=== PATIENT | female | born 1990 | race Caucasian/White ===

== ENCOUNTER 2017-03-20 11:09 | Outpatient (CLI) | payer OTHER, SELFPAY ==
[2017-03-20 11:29] VITALS: BMI 31.0
[2017-03-20 12:02] LABS: ROM Internal Control Test YES-OK TO RESULT pt. (Internal QC); ROM Patient Test Negative (Negative)
--- NOTE | 2017-03-29 18:40 | OB.TRI.NOTE ---
History of Present Illness Reason For Visit: RULE OUT SROM Date of Service: 03/20/17 Gestational age: 37 Home Medications Medication Instructions Recorded Levothyroxine [Synthroid] 50 mcg PO DAILY 03/20/17 Prenatabs FA 1 tab PO DAILY 03/20/17 Ibuprofen [Motrin] 800 mg PO TID PRN PRN #30 tab 03/29/17 Levothyroxine [Synthroid] 50 mcg PO DAILY@2200 tablet 03/29/17 Allergies No Known Allergies Allergy (Verified 03/20/17 11:27) NST - FHR Rate Baby A Baseline: normal Variability:: Moderate Accelerations:: 15 x 15 Decelerations:: None NST Reactive:: Yes FHR Category:: Category I Uterine Activity:: irreg ctxs Impression/Plan 26 YOF @ 37 + weeks w/ false labor d/c home, return in labor or prn
== END 2017-03-20 12:50 | disposition home or self-care (01) ==
LOC: WPOUT 11:11 → WP 11:11
PROVIDERS: Visit Provider Obstetrics & Gynecology
DX: O47.1 False labor at or after 37 completed weeks of gestation (principal); Z3A.37 37 weeks gestation of pregnancy
CPT/HCPCS: 59025; 59050; 84112; 99218; G0378; G0379

== ENCOUNTER 2017-03-27 09:20 | Inpatient (IN) | payer OTHER, SELFPAY ==
[2017-03-27 09:18] LABS: ROM Internal Control Test YES-OK TO RESULT pt. (Internal QC)
[2017-03-27 09:20] LABS: ROM Patient Test POSITIVE (Negative)
[2017-03-27 09:30] VITALS: BMI 31.2
[2017-03-27] MEDS: Lactated Ringers 1,000 ML 50 ML IV ×4 (09:30→17:40)
[2017-03-27 09:48] LABS: Hematocrit 34.1 % (37-47); Hemoglobin 11.9 g/dl (12.0-15.0); Mean Corp Hgb Conc 34.9 g/gl (32-36); Mean Corpuscular Hgb 30.7 pg (27.0-32.0); Mean Corpuscular Volume 88.1 fL (81-99); Mean Platelet Vol. 11.7 fl (6.2-12.0); Platelet Count 139 K/mm3 (150-450); RBC Distribution Width CV 12.3 % (11.6-14.6); RBC Distribution Width SD 38.8 fl (35.1-43.9); Red Blood Count 3.87 M/mm3 (4.2-5.4); White Blood Count 10.5 K/mm3 (4.4-11.0)
[2017-03-27 09:49] LABS: Scan Indicated on CBC? Y/N NO
[2017-03-27] MEDS: Oxytocin 30 units/NS 500 ml 30 UNITS/500 ML IV.SOLN IV (11:48)
--- NOTE | 2017-03-27 16:52 | PCM.HP.OB ---
(1) PROM (premature rupture of membranes) Status: Acute Qualifiers: PROM onset of labor timing: onset of labor within 24 hours of rupture PROM gestational age: full term Qualified Code(s): O42.02 - Full-term premature rupture of membranes, onset of labor within 24 hours of rupture (2) Hypothyroidism affecting in third trimester Status: Acute (3) Polycystic kidney disease Status: Acute (4) History of macrosomia in in prior , currently in third trimester Status: Acute History Date of Admission: 03/27/17 Gestational age: 38 History of this : 26 year old at 38w6d TOMAS: 04/04/17 by LMP, confirmed by 1st trimester U/S. SROM this am around 0800, clear fluid at home. Contractions began about every 6-7 minutes and presented to L&D. Advanced dilation in office of 5cm. Labored throughout the day and coping well. Family at bedside. OB history: History of macrosomia 9lb 6oz. Allergies No Known Allergies Allergy (Verified 03/20/17 11:27) Current Medications Acetaminophen (Tylenol) 325 - 650 mg PO Q4H PRN PRN PRN Reason: PAIN OR FEVER >100.4F Al Hydroxide/Mg Hydroxide (Mylanta Ii) 15 - 30 ml PO Q4H PRN PRN PRN Reason: INDIGESTION Citric Acid/Sodium Citrate (Bicitra) 30 ml PO UD PRN Lactated Ringer's () 1,000 mls @ 50 mls/hr IV .Q20H [facility] Last Admin: 03/27/17 16:15 Dose: 50 mls/hr Oxytocin/Sodium Chloride () 30 units in 500 mls @ 1 mls/hr IV .Q500H [facility] Last Admin: 03/27/17 11:48 Dose: 1 mls/hr Levothyroxine Sodium (Synthroid) 50 mcg PO DAILY [facility] Nalbuphine HCl (Nubain) 5 - 10 mg IV Q3H PRN PRN PRN Reason: PAIN (4-10/10) Ondansetron HCl (Zofran) 4 mg IV Q8H PRN PRN PRN Reason: NAUSEA Promethazine HCl (Phenergan (Ll)) 6.25 - 12.5 mg IV Q4H PRN PRN; Protocol PRN Reason: IF NAUSEA PERSISTS Sodium Chloride () 5 - 15 ml IV UD [facility] Last Admin: 03/27/17 10:48 Dose: Not Given Smoking Status: Never smoker Alcohol: None Drug Use: none Number of Fetus(es): 1 Review of Systems Constitutional: Denies: Chills, Fever, Weight Change Cardiovascular: Denies: Chest Pain, Palpitations Respiratory: Denies: Cough, Shortness of breath at rest, Sputum production Genitourinary: Denies: Dysuria Physical Exam Vitals: labs: HIV negative RPR negative HBsAG negative Rubella Immune A positive GBS negative. General: Alert, Oriented x3, No apparent distress Cardiovascular: Regular rate, Regular Rhythm, No murmurs Lungs: Clear to auscultation, No rhonchi, No wheeze Abdomen: Bowel Sounds Present, Gravid Extremities:: No edema Estimated gestational size: Appropriate for gestational size Presentation: Cephalic Cervix Dilation (cm): 6 Station: -1 Effacement (%): 80 Assessment/Plan Active and Suspected Problems PROM (premature rupture of membranes) (Acute) Hypothyroidism affecting in third trimester (Acute) Polycystic kidney disease (Acute) History of macrosomia in infant in prior , currently in third trimester (Acute) FHT 120, moderate variability, accels, no decels, category 1. After AROM of forebag, had occasional variable decel Category 2 TOCO: every 2 minutes, moderate Pitocin at 8mu's A: 26 year old at 38w6d in active labor PROM History of macrosomia Category 2 FHT P: 1) Admit to L&D. Routine orders 2) Epidural for pain management 3) Positional changes in bed 4) Continue with Pitocin augmentation 5) notified of patient status and plan. Kylah Lawson CNM
--- NOTE | 2017-03-27 17:03 | HP.PCM_ITS ---
(1) PROM (premature rupture of membranes) Status: Acute Qualifiers: PROM onset of labor timing: onset of labor within 24 hours of rupture PROM gestational age: full term Qualified Code(s): O42.02 - Full-term premature rupture of membranes, onset of labor within 24 hours of rupture (2) Hypothyroidism affecting in third trimester Status: Acute (3) Polycystic kidney disease Status: Acute (4) History of macrosomia in in prior , currently in third trimester Status: Acute History Date of Admission: 03/27/17 Gestational age: 38 History of this : 26 year old at 38w6d TOMAS: 04/04/17 by LMP, confirmed by 1st trimester U/ S. SROM this am around 0800, clear fluid at home. Contractions began about every 6-7 minutes and presented to L&D. Advanced dilation in office of 5cm. Labored throughout the day and coping well. Family at bedside. OB history: History of macrosomia 9lb 6oz. Allergies No Known Allergies Allergy (Verified 03/20/17 11:27) Current Medications Acetaminophen (Tylenol) 325 - 650 mg PO Q4H PRN PRN PRN Reason: PAIN OR FEVER >100.4F Al Hydroxide/Mg Hydroxide (Mylanta Ii) 15 - 30 ml PO Q4H PRN PRN PRN Reason: INDIGESTION Citric Acid/Sodium Citrate (Bicitra) 30 ml PO UD PRN Lactated Ringer's () 1,000 mls @ 50 mls/hr IV .Q20H [facility] Last Admin: 03/27/17 16:15 Dose: 50 mls/hr Oxytocin/Sodium Chloride () 30 units in 500 mls @ 1 mls/hr IV .Q500H [facility] Last Admin: 03/27/17 11:48 Dose: 1 mls/hr Levothyroxine Sodium (Synthroid) 50 mcg PO DAILY [facility] Nalbuphine HCl (Nubain) 5 - 10 mg IV Q3H PRN PRN PRN Reason: PAIN (4-10/10) Ondansetron HCl (Zofran) 4 mg IV Q8H PRN PRN PRN Reason: NAUSEA Promethazine HCl (Phenergan (Ll)) 6.25 - 12.5 mg IV Q4H PRN PRN; Protocol PRN Reason: IF NAUSEA PERSISTS Sodium Chloride () 5 - 15 ml IV UD [facility] Last Admin: 03/27/17 10:48 Dose: Not Given Smoking Status: Never smoker Alcohol: None Drug Use: none Number of Fetus(es): 1 Review of Systems Constitutional: Denies: Chills, Fever, Weight Change Cardiovascular: Denies: Chest Pain, Palpitations Respiratory: Denies: Cough, Shortness of breath at rest, Sputum production Genitourinary: Denies: Dysuria Physical Exam Vitals: labs: HIV negative RPR negative HBsAG negative Rubella Immune A positive GBS negative. General: Alert, Oriented x3, No apparent distress Cardiovascular: Regular rate, Regular Rhythm, No murmurs Lungs: Clear to auscultation, No rhonchi, No wheeze Abdomen: Bowel Sounds Present, Gravid Extremities:: No edema Estimated gestational size: Appropriate for gestational size Presentation: Cephalic Cervix Dilation (cm): 6 Station: -1 Effacement (%): 80 Assessment/Plan Active and Suspected Problems PROM (premature rupture of membranes) (Acute) Hypothyroidism affecting in third trimester (Acute) Polycystic kidney disease (Acute) History of macrosomia in infant in prior , currently in third trimester (Acute) FHT 120, moderate variability, accels, no decels, category 1. After AROM of forebag, had occasional variable decel Category 2 TOCO: every 2 minutes, moderate Pitocin at 8mu's A: 26 year old at 38w6d in active labor PROM History of macrosomia Category 2 FHT P: 1) Admit to L&D. Routine orders 2) Epidural for pain management 3) Positional changes in bed 4) Continue with Pitocin augmentation 5) notified of patient status and plan. Kylah Lawson CNM
[2017-03-27] MEDS: Oxytocin 30 units/NS 500 ml 30 UNITS/500 ML IV.SOLN 334 UNITS IV (18:23)
--- NOTE | 2017-03-27 18:30 | PCM.OB.VAG ---
(1) PROM (premature rupture of membranes) Status: Acute Qualifiers: PROM onset of labor timing: onset of labor within 24 hours of rupture PROM gestational age: full term Qualified Code(s): O42.02 - Full-term premature rupture of membranes, onset of labor within 24 hours of rupture (2) Hypothyroidism affecting in third trimester Status: Acute (3) Polycystic kidney disease Status: Acute (4) History of macrosomia in in prior , currently in third trimester Status: Acute (5) (normal spontaneous vaginal delivery) Status: Acute Vaginal Delivery Maternal Presentation: Active Labor, Spontaneous Rupture of Membranes Method of Induction: Pitocin, Amniotomy Amniotic Membrane Rupture Type: Spontaneous at home - AROM for forebag Amniotic Fluid Description: Clear Final TOMAS: 04/04/17 Final TOMAS Source: LMP Gestational age: 38 Weeks and 6 Days Date of Procedure: 03/27/17 Pre-Operative Diagnosis: PROM, Active labor Post-Operative Diagnosis: Surgery/ Procedure Performed: Spontaneous Vaginal Delivery Type of Anesthesia: Epidural Description of Procedure: Progressed to complete with increased pressure. of viable male over intact perineum. Delivered OA and restituted to IRIS, compound presentation of right hand. Infant delivered and placed on maternal abdomen skin to skin. Mouth and nares suctioned for secretions, strong cry spontaneous. APGARS 8,9 with weight pending. Placenta delivered intact with maternal effort, 3 vessel cord. IV pitocin for active 3rd stage management. Perineum inspected and intact, no repair. Fundus firm and hemostasis achieved, 250ml EBL. Planning to breastfeed, mom and baby stable. Family bonding well. notified of delivery. Presentation: Vertex, IRIS Placental Delivery Description: Spontaneous Placenta Disposition: [facility] Cord Vessel Description: 3 Vessels Cord Entanglement: None Estimated Blood Loss: 250ml (1 minute): 8 (5 minute): 9 Episiotomy Description: None Laceration: None Medications given after delivery: IV Pitocin
[2017-03-27] MEDS: Oxytocin 30 units/NS 500 ml 30 UNITS/500 ML IV.SOLN 167 UNITS IV (18:49)
[2017-03-27 23:10] VITALS: BP 115/72; PULSE 75; RESP 18; TEMP 36.8; O2SAT 95
--- NOTE | 2017-03-27 23:36 | EKGRS_ITS ---
Test Reason : ARRYTHMIA Blood Pressure : / mmHG Vent. Rate : 054 BPM Atrial Rate : 054 BPM P-R Int : 156 ms QRS Dur : 078 ms QT Int : 388 ms P-R-T Axes : 062 037 030 degrees QTc Int : 367 ms Sinus bradycardia with marked sinus arrhythmia Otherwise normal ECG No previous ECGs available Confirmed by JACQUES OLIVAS ([id number]), editor magazine CHRISTOPHER MCGHEE ([id number]) on 03/31/2017 12:06:12 PM Referred By: EDY Confirmed By:JACQUES OLIVAS
[2017-03-27] MEDS: 0.9 % NaCl (Sterile) Posiflush 10 mL IV (23:50)
[2017-03-28 00:05] LABS: Hematocrit 32.4 % (37-47); Hemoglobin 11.3 g/dl (12.0-15.0); Mean Corp Hgb Conc 34.9 g/gl (32-36); Mean Corpuscular Hgb 30.9 pg (27.0-32.0); Mean Corpuscular Volume 88.5 fL (81-99); Mean Platelet Vol. 12.1 fl (6.2-12.0); Platelet Count 138 K/mm3 (150-450); RBC Distribution Width CV 12.2 % (11.6-14.6); RBC Distribution Width SD 37.9 fl (35.1-43.9); Red Blood Count 3.66 M/mm3 (4.2-5.4); White Blood Count 15.2 K/mm3 (4.4-11.0)
[2017-03-28 00:12] LABS: Scan Indicated on CBC? Y/N NO
[2017-03-28 00:28] LABS: ALB/GLOB Ratio 0.7 RATIO (0.9-2.4); AST(SGOT) 25 U/L (15-37); Alanine Aminotransfer ALT/SGPT 17 U/L (13-56); Albumin, Serum 2.3 g/dL (3.2-5.0); Alkaline Phosphatase 125 U/L (45-117); Anion Gap 9 (5-15); BUN 8 mg/dL (7-18); BUN/Creat Ratio 19.8 RATIO (10-20); Calcium,Total 8.5 mg/dL (8.5-10.1); Chloride 108 mmol/L (98-107); EST Glomerular Filtration Rate 202 mL/min (>60); Est Glom Filt Rate - Afr Amer 245 mL/min (>60); Globulin 3.4 g/dL (2.2-4.2); Glucose 91 mg/dL (70-110); Potassium 3.5 mmol/L (3.5-5.1); Protein, Total 5.7 g/dL (6.4-8.2); Sodium Level 140 mmol/L (136-145)
--- NOTE | 2017-03-28 00:30 | NURSING ---
2327-called sandy christiansen cnm, made aware of pt having irreg rhythm with hr in the 50's. orders received. 2339-called RT, made aware of order for ekg 234-cbc, cmp drawn from rt hand 235-RT sandy in to do EKG
--- NOTE | 2017-03-28 00:39 | NURSING ---
0035-called sandy christiansen, made aware of ekg reading showing sinus angelica with marked sinus arrhythmia and of lab results. to have ekg read as normally read by hospitalist and consult them to see pt in am if pt becomes symptomatic to notify sandy christiansen.
--- NOTE | 2017-03-28 00:58 | NURSING ---
0055-hospitalist dr Fernandez made aware of request for hospitalist to see pt in am and read EKG. to call again in am at 0800
[2017-03-28] MEDS: Ibuprofen 600 MG Tablet PO ×3 (03:14→19:47)
[2017-03-28 03:15] VITALS: BP 114/69; PULSE 67; RESP 16; TEMP 36.7; O2SAT 98
[2017-03-28 08:14] VITALS: BP 128/71; PULSE 62; RESP 16; TEMP 36.6; O2SAT 96
--- NOTE | 2017-03-28 08:21 | PCM.PN.OB ---
Patient Problems: Active and Suspected Problems PROM (premature rupture of membranes) (Acute) Hypothyroidism affecting in third trimester (Acute) Polycystic kidney disease (Acute) History of macrosomia in in prior , currently in third trimester (Acute) (normal spontaneous vaginal delivery) (Acute) Subjective: Doing well per patient and nursing staff. Ambulating and taking PO without difficulty. Voiding and passing flatus. Denies any headache, visual changes, chest pain, shortness of breath, dizziness, chest pain or palpitations, or increased vaginal bleeding. Notified last night that patient had irregular HR and bradycardia to the 50's. Patient has been asymptomatic and not bradycardic this am. - Physical Exam General: Alert Lungs: Clear to auscultation, Normal air movement, No rhonchi, No wheeze Cardiovascular: Regular rate, Regular Rhythm, No murmurs Abdomen: Bowel Sounds Present, - - Fundus firm 2 below U Extremities: No edema, Capillary Refill Less than 3 Seconds Psych/Mental Status: Normal Affect, Appropriate Vital Signs Temp Pulse Resp BP Pulse Ox 98 F 62 16 128/71 H 96 03/28/17 08:14 03/28/17 08:14 03/28/17 08:14 03/28/17 08:14 03/28/17 08:14 Oxygen Delivery Method Room Air Weight: 176 lb 9.444 oz Body Mass Index (BMI) 31.2 Intake and Output for Last 24 Hours 03/26/17 03/27/17 03/28/17 23:59 23:59 23:59 Intake Total 4828 / 4828 Output Total 2750 / 2750 Balance 2078 / 2078 Laboratory Tests Past 24 Hrs 03/27/17 03/27/17 03/27/17 09:01 09:30 09:30 WBC 10.5 RBC 3.87 L Hgb 11.9 L Hct 34.1 L MCV 88.1 MCH 30.7 MCHC 34.9 RDW 12.3 RDW Differential 38.8 Plt Count 139 L MPV 11.7 Sodium Potassium Chloride Carbon Dioxide Anion Gap BUN Creatinine Estim Creat Clear Calc Est GFR (MDRD) Af Amer Est GFR (MDRD) Non-Af BUN/Creatinine Ratio Glucose Calcium Total Bilirubin AST ALT Alkaline Phosphatase Total Protein Albumin Globulin Albumin/Globulin Ratio Vag Amniotic Fld Detect POSITIVE H Blood Type A POSITIVE Antibody Screen NEGATIVE 03/27/17 03/27/17 23:47 23:47 WBC 15.2 H RBC 3.66 L Hgb 11.3 L Hct 32.4 L MCV 88.5 MCH 30.9 MCHC 34.9 RDW 12.2 RDW Differential 37.9 Plt Count 138 L MPV 12.1 H Sodium 140 Potassium 3.5 Chloride 108 H Carbon Dioxide 23.0 Anion Gap 9 BUN 8 Creatinine 0.40 L Estim Creat Clear Calc 176.30 Est GFR (MDRD) Af Amer 245 Est GFR (MDRD) Non-Af 202 BUN/Creatinine Ratio 19.8 Glucose 91 Calcium 8.5 Total Bilirubin 0.70 AST 25 ALT 17 Alkaline Phosphatase 125 H Total Protein 5.7 L Albumin 2.3 L Globulin 3.4 Albumin/Globulin Ratio 0.7 L Vag Amniotic Fld Detect Blood Type Antibody Screen Assessment/Plan Active and Suspected Problems PROM (premature rupture of membranes) (Acute) Hypothyroidism affecting in third trimester (Acute) Polycystic kidney disease (Acute) History of macrosomia in in prior , currently in third trimester (Acute) (normal spontaneous vaginal delivery) (Acute) A: PPD#1 Sinus bradycardia with arrhythmia P: 1) Last night patient with sinus bradycardia and arrhythmia, no previous cardiac history. Patient asymptomatic and regular rhythm this am and normal rate. Will consult . 2) Routine PP care. 3) Planning for D/C home tomorrow.
--- NOTE | 2017-03-28 08:25 | PCM.DCVAG ---
Discharge Diet: No Restrictions Discharge Activity: Return to Normal Activity, May not drive while taking narcotic pain medications., May Shower May resume sexual activity in: 4-6 weeks Weight Bearing Status: Weight bearing as tolerated Call your doctor if your incision/area has: Continuous Slow Oozing, Sudden Increased Bleeding, Increased Pain/ Swelling, Increased Redness, Foul Smelling Discharge Additional Instructions: If you experience any of the following, contact your healthcare provider. Bleeding that soaks a pad every hour for 2 hours Fever 100.4 or higher Unrelieved incision or abdominal pain Swelling, redness, discharge or bleeding from your incision or episiotomy site Your incision begins to separate Problems urinating (including inability to urinate or burning while urinating). Visual changes Severe headache Flu-like symptoms Pain or redness in one of both of your breasts Pain, warmth, tenderness or swelling in your legs, especially the calf area Frequent nausea and vomiting Symptoms of depression or anxiety If you experience any of the following, call 911 or go to the nearest Emergency Room. Chest pain Problems breathing Seizure activity Partial or complete paralysis of a body part, slurred speech, weakness or drooping of the face, or a sudden inability to walk or hold your balance Allergies/Adverse Reactions: Allergies No Known Allergies Allergy (Verified 03/20/17 11:27) Medications to take at Discharge Levothyroxine [Synthroid] 50 mcg PO DAILY 03/20/17 Prenatabs FA 1 tab PO DAILY 03/20/17 Please Follow Up With: Kylah Anthony CNM When: Call to make an appointment with your doctor in 6 weeks. If you had elevated Blood Pressure or 4th degree laceration you will need to be seen in 2 weeks.
--- NOTE | 2017-03-28 08:26 | DCINST_ITS ---
Discharge Diet: No Restrictions Discharge Activity: Return to Normal Activity, May not drive while taking narcotic pain medications., May Shower May resume sexual activity in: 4-6 weeks Weight Bearing Status: Weight bearing as tolerated Call your doctor if your incision/area has: Continuous Slow Oozing, Sudden Increased Bleeding, Increased Pain/ Swelling, Increased Redness, Foul Smelling Discharge Additional Instructions: If you experience any of the following, contact your healthcare provider. * Bleeding that soaks a pad every hour for 2 hours * Fever 100.4 or higher * Unrelieved incision or abdominal pain * Swelling, redness, discharge or bleeding from your incision or episiotomy site * Your incision begins to separate * Problems urinating (including inability to urinate or burning while urinating) . * Visual changes * Severe headache * Flu-like symptoms * Pain or redness in one of both of your breasts * Pain, warmth, tenderness or swelling in your legs, especially the calf area * Frequent nausea and vomiting * Symptoms of depression or anxiety If you experience any of the following, call 911 or go to the nearest Emergency Room. * Chest pain * Problems breathing * Seizure activity * Partial or complete paralysis of a body part, slurred speech, weakness or drooping of the face, or a sudden inability to walk or hold your balance Allergies/Adverse Reactions: Allergies No Known Allergies Allergy (Verified 03/20/17 11:27) Medications to take at Discharge Levothyroxine [Synthroid] 50 mcg PO DAILY 03/20/17 Prenatabs FA 1 tab PO DAILY 03/20/17 Please Follow Up With: Kylah Anthony CNM When: Call to make an appointment with your doctor in 6 weeks. If you had elevated Blood Pressure or 4th degree laceration you will need to be seen in 2 weeks.
--- NOTE | 2017-03-28 08:51 | PCM.CONS.GEN ---
Problem List (1) Sinus arrhythmia Status: Acute (2) Hypothyroidism affecting in third trimester Status: Chronic (3) Polycystic kidney disease Status: Chronic (4) History of macrosomia in infant in prior , currently in third trimester Status: Chronic (5) (normal spontaneous vaginal delivery) Status: Acute Reason for Consult Date of Consultation: 03/28/17 Reason for Consultation: Sinus bradycardia with arrhythmia History of Present Illness: The patient is a 26 y/o F w/ PMHx: Hypothyroidism, Overweight, PCKD, Recent with no magdiel- complications who presented initially to the [facility] ED on 03/27/17 in spontaneous labor. Following delivery she had EKG performed w/ noted bradycardia with sinus arrhythmia which was asymptomatic. Hospitalist physician was consult to assure no concerns needed to be addressed. On evaluation patient denied any underlying cardiac history or prior episodes. She stated she was still asymptomatic, feeling well status post delivery of her infant. She only noted issues with breast-feeding secondary to infant latch following circumcision. Past Medical History Past Medical History (Chronic Problems): Chronic Problems Hypothyroidism affecting in third trimester (Chronic) Polycystic kidney disease (Chronic) History of macrosomia in in prior , currently in third trimester (Chronic) Allergies No Known Allergies Allergy (Verified 03/20/17 11:27) Home Medications: Ambulatory Orders Medication Instructions Recorded Levothyroxine [Synthroid] 50 mcg PO DAILY 03/20/17 Prenatabs FA 1 tab PO DAILY 03/20/17 Surgical History: - - Jaw surgery. 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 Sibling History Items: - - There with renal disease specifically polycystic kidney disease. Paternal History Items: - - Paternal grandfather history of colon cancer noted otherwise no marketed disease in her father she notes. Review of Systems Constitutional: Reports: Weakness, Fatigue. Denies: Chills, Fever, Weight Change HEENT: Denies: Head Aches, Sinus Congestion, Sinus Drainage Cardiovascular: Denies: Chest Pain, Palpitations Respiratory: Denies: Cough, Shortness of breath at rest, Sputum production Gastrointestinal: Denies: Abdominal Pain, Nausea, Vomiting Genitourinary: Denies: Dysuria Gynecological: Reports: Breast symptoms, Vaginal bleeding Musculoskeletal: Denies: Joint Pain, Joint Tenderness Skin: Denies: Rash, Wounds Neurological: Denies: Numbness, Tingling, Focal weakness Psychiatric: Denies: Anxiety, Depression, Homicidal Ideations, Suicidal Ideations Hematologic/ Lymphatic: Denies: Easy Bruising, Easy Bleeding Patient Problems: Active and Suspected Problems PROM (premature rupture of membranes) (Acute) (normal spontaneous vaginal delivery) (Acute) Sinus arrhythmia (Acute) Subjective: Seated upright in bed, no acute distress, denies any acute complaints. Objective: Physical Examination: General: awake, alert, oriented x 3 and cooperative, seated upright in bed in no apparent distress. Skin: normal color, turgor, no icterus, cyanosis. HEENT: AT/NC, EOMI, PERRLA, MMM, no JVD or carotid bruit noted. Lungs: CTA bilaterally, moderate effort, mild decrease BL bases, no rales, ronchi or wheezing. Heart: Bradycardic with noted sinus arrhythmia specifically with respiratory cycle; no gallop, rub audible. Abdomen: soft, expected mild tenderness to palpation in the suprapubic region status post recent spontaneous vaginal delivery, ND, normal BS, no HSM. Extremities: no cyanosis, clubbing, mild BL ankle edema. Neurological: patient awake, alert, oriented x 3; cognitive function intact; pupils equally reactive to light and accomodation; cranial nerves II-XII grossly normal, moving all 4 extremities, no focal deficits, strength appropriately mildly to moderately globally decreased secondary to recent delivery. Psychiatric: affect appears normal, no acute evidence of depressive or anxiety feelings. - Physical Exam Vital Signs Temp Pulse Resp BP Pulse Ox 98 F 62 16 128/71 H 96 03/28/17 08:14 03/28/17 08:14 03/28/17 08:14 03/28/17 08:14 03/28/17 08:14 Oxygen Delivery Method Room Air Weight: 176 lb 9.444 oz Body Mass Index (BMI) 31.2 Intake and Output for Last 24 Hours 03/26/17 03/27/17 03/28/17 23:59 23:59 23:59 Intake Total 4828 / 4828 Output Total 2750 / 2750 Balance 2077 Laboratory Tests Past 24 Hrs 03/27/17 03/27/17 03/27/17 09:01 09:30 09:30 WBC 10.5 RBC 3.87 L Hgb 11.9 L Hct 34.1 L MCV 88.1 MCH 30.7 MCHC 34.9 RDW 12.3 RDW Differential 38.8 Plt Count 139 L MPV 11.7 Sodium Potassium Chloride Carbon Dioxide Anion Gap BUN Creatinine Estim Creat Clear Calc Est GFR (MDRD) Af Amer Est GFR (MDRD) Non-Af BUN/Creatinine Ratio Glucose Calcium Total Bilirubin AST ALT Alkaline Phosphatase Total Protein Albumin Globulin Albumin/Globulin Ratio Vag Amniotic Fld Detect POSITIVE H Blood Type A POSITIVE Antibody Screen NEGATIVE 03/27/17 03/27/17 23:47 23:47 WBC 15.2 H RBC 3.66 L Hgb 11.3 L Hct 32.4 L MCV 88.5 MCH 30.9 MCHC 34.9 RDW 12.2 RDW Differential 37.9 Plt Count 138 L MPV 12.1 H Sodium 140 Potassium 3.5 Chloride 108 H Carbon Dioxide 23.0 Anion Gap 9 BUN 8 Creatinine 0.40 L Estim Creat Clear Calc 176.30 Est GFR (MDRD) Af Amer 245 Est GFR (MDRD) Non-Af 202 BUN/Creatinine Ratio 19.8 Glucose 91 Calcium 8.5 Total Bilirubin 0.70 AST 25 ALT 17 Alkaline Phosphatase 125 H Total Protein 5.7 L Albumin 2.3 L Globulin 3.4 Albumin/Globulin Ratio 0.7 L Vag Amniotic Fld Detect Blood Type Antibody Screen Assessment/Plan Active and Suspected Problems PROM (premature rupture of membranes) (Acute) (normal spontaneous vaginal delivery) (Acute) Sinus arrhythmia (Acute) The patient is a 26 y/o F w/ PMHx: Hypothyroidism, Overweight, PCKD, Recent with no magdiel- complications who presented initially to the [facility] ED on 03/27/17 in spontaneous labor w/ peripartum bradycardia noted, asymptomatic. (1) Sinus bradycardia with sinus arrhythmia: Upon evaluation patient remained asymptomatic, EKG with sinus bradycardia with mild sinus arrhythmia noted, likely unremarkable however to be cautious magnesium obtained with level 1.6 with supplementation administered as well as echocardiogram with normal LV size, normal LV systolic function, EF 55%, mild mitral valve insufficiency. Will defer repeat EKG in AM, defer further work-up as no indication of concerning cardiac findings. Clear from a medical standpoint for discharge to home in AM. (2) Hypothyroidism: Continue home synthroid regimen, TSH and free T4 appropriate levels. (3) PCKD: BUN/Cr 8/0.4, hydrated during recent delivery, has not had issues with status, encouraged continued PCP/nephrology outpatient assessment. (4) Normocytic Anemia, Chronic secondary to : Admission Hgb 11.9, repeat 11.3, secondary to recent , encourage PNV w/ Fe supplementation given status concurrently with bowel regimen as needed. (5) DVT Prophylaxis: Defer to engineer third assistant, appears low risk, ambulation. Code Visit Office Visits / Consults: [id number] IP Consult L3
[2017-03-28 09:59] LABS: Magnesium 1.6 mg/dL (1.6-2.6); T4 Free Direct 0.86 ng/dL (0.76-1.46); Thyroid Stim Hormone (TSH) 1.53 uIU/mL (0.358-3.74)
[2017-03-28 11:15] VITALS: BP 116/69; PULSE 78; RESP 16; TEMP 36.4; O2SAT 96
--- NOTE | 2017-03-28 13:53 | NURSING ---
Charting done by nursing home aide reviewed by this RN and agreed with charting.
--- NOTE | 2017-03-28 14:29 | ECHOD_ITS ---
Reason For Study: arrhythmia Procedure This was a 2D Doppler, Color Flow transthoracic echocardiogram. Exam performed portable in patient room. Left Ventricle Normal LV size. Left ventricular systolic function is normal. The estimated ejection fraction is 55 %. No regional wall motion abnormalities noted. Right Ventricle Normal RV size. Normal systolic function. Atria Normal left atrium. Normal right atrium. Mitral Valve Normal mitral valve. Mild (1+) eccentric mitral valve insufficiency. Tricuspid Valve Normal tricuspid valve. Aortic Valve Normal aortic valve. Trisinus/trileaflet aortic valve. Pulmonic Valve Normal pulmonic valve. Great Vessels Normal aortic root. The pulmonary artery is normal size. Normal inferior vena cava. Pericardium/Pleural No pericardial effusion. MMode/2D Measurements & Calculations LVIDd: 4.6 cm IVSd: 0.78 cm MVA(traced): 12.7 cm2 LVIDs: 3.4 cm LVPWd: 0.95 cm RVDd: 3.5 cm FS: 27.6 % Ao root diam: 3.4 cm LAV(MOD-bp): 43.1 ml LA A4 area: 15.3 cm2 LA dimension: 3.4 cm LAV(MOD-bp) Indexed: 23.6 ml/m2 LAV(MOD-sp2): 46.0 ml LAV(MOD-sp4): 39.1 ml Doppler Measurements & Calculations MV E max ej: 83.0 cm/sec Lat Peak E' Ej: 17.6 cm/sec Med Peak E' Ej: 12.8 cm/sec MV A max ej: 43.9 cm/sec E/E' lat: 4.7 E/E' med: 6.5 MV E/A: 1.9 Ao V2 max: 115.9 cm/sec LV V1 max: 84.6 cm/sec PA V2 max: 90.0 cm/sec Ao max P.4 mmHg LV V1 max P.9 mmHg Interpretation Summary Normal LV size. Left ventricular systolic function is normal. The estimated ejection fraction is 55 %. Mild (1+) eccentric mitral valve insufficiency. Ordering Physician: Hermelinda Albright Referring Physician: LACEY PCP Performed By: Cathy Leal, PARAG, RVT
[2017-03-28 16:15] VITALS: BP 125/71; PULSE 72; RESP 16; TEMP 37.3; O2SAT 97
[2017-03-28 20:20] VITALS: BP 116/69; PULSE 74; RESP 16; TEMP 36.8
[2017-03-28] MEDS: Levothyroxine 50 MCG Tablet PO (22:17)
[2017-03-29 01:25] VITALS: BP 109/58; PULSE 64; RESP 16; TEMP 36.2; O2SAT 99
[2017-03-29 05:48] VITALS: BP 119/76; PULSE 63; RESP 16; TEMP 36.7; O2SAT 97
[2017-03-29] MEDS: Ibuprofen 600 MG Tablet PO (07:20)
--- NOTE | 2017-03-29 07:24 | PCM.PN.OB ---
Patient Problems: Active and Suspected Problems PROM (premature rupture of membranes) (Acute) (normal spontaneous vaginal delivery) (Acute) Sinus arrhythmia (Acute) Subjective: pt seen at bedside, doing well. pt reports good pain control. lochia mild. Breast feeding well. - Physical Exam General: Alert, Oriented x3 Abdomen: Soft, - - fundus firm Extremities: No Calf Tenderness Vital Signs Temp Pulse Resp BP Pulse Ox 98.0 F 63 16 119/76 97 03/29/17 05:48 03/29/17 05:48 03/29/17 05:48 03/29/17 05:48 03/29/17 05:48 Oxygen Delivery Method Room Air Weight: 80.1 kg Body Mass Index (BMI) 31.2 Intake and Output for Last 24 Hours 03/27/17 03/28/17 03/29/17 23:59 23:59 23:59 Intake Total 4828 / 4828 Output Total 2750 / 2750 Balance 2078 / 2078 Laboratory Tests Past 24 Hrs 03/28/17 09:20 Magnesium 1.6 TSH 1.53 Free T4 0.86 Assessment/Plan Active and Suspected Problems PROM (premature rupture of membranes) (Acute) (normal spontaneous vaginal delivery) (Acute) Sinus arrhythmia (Acute) PPD#2, doing well routine care Hospitalist consultation done for Bradycardia - cleared for dc home dc home
[2017-03-29 07:39] VITALS: BP 129/80; PULSE 67; RESP 16; TEMP 37.2; O2SAT 98
== END 2017-03-29 08:40 | disposition home or self-care (01) | DRG 774 ==
LOC: WPOUT 09:24
PROVIDERS: Advanced Practice Midwife; Admitting Provider Obstetrics & Gynecology; Visit Provider Family Medicine
DX: O42.02 Full-term premature rupture of membranes, onset of labor within 24 hours of rupture (principal); O90.89 Other complications of the puerperium, not elsewhere classified; Q61.3 Polycystic kidney, unspecified; R00.1 Bradycardia, unspecified; D64.9 Anemia, unspecified; O99.02 Anemia complicating childbirth; Z3A.38 38 weeks gestation of pregnancy; Z37.0 Single live birth; E66.3 Overweight; Z68.31 Body mass index [BMI] 31.0-31.9, adult; O99.284 Endocrine, nutritional and metabolic diseases complicating childbirth; E03.9 Hypothyroidism, unspecified; Z87.891 Personal history of nicotine dependence; Z79.899 Other long term (current) drug therapy
CPT/HCPCS: 59025; 59050; 80053; 83735; 84112; 84439; 84443; 85027; 86850; 86900; 93005; 93306; 99218; J7120; A4216; G0378

== ENCOUNTER → 2019-09-20 10:30 | Outpatient (CLI) | payer OTHER, SELFPAY | PROVIDERS: PCP Family Medicine | DX: Z20.828 Contact with and (suspected) exposure to other viral communicable diseases (principal) | CPT/HCPCS: 87635; G2023; U0003 ==

== ENCOUNTER 2022-03-05 22:16 | Outpatient (CLI) | payer OTHER, SELFPAY ==
[2022-03-05 22:38] VITALS: BP 115/62; PULSE 77; TEMP 36.1; O2SAT 83; O2SAT 98
[2022-03-05 22:39] VITALS: BMI 31.7
[2022-03-05 23:39] LABS: ROM Internal Control Test YES-OK TO RESULT pt. (Internal QC); ROM Patient Test Negative (Negative)
--- NOTE | 2022-03-15 17:34 | OB.TRI.PN ---
Progress Notes Progress Note: Presented to labor and delivery at 39w with TOMAS 03/13/22 for decreased movement and possible rupture of membranes. Laboratory Studies: Laboratory Tests 03/05/22 Range/Units 23:05 Vag Amniotic Fld Detect Negative (Negative) NST 125, moderate variability, accels, no decels, reactive Assessment & Plan (1) Vaginal discharge: PLAN: Plan 1) ROM plus negative 2) NST reactive 3) D/C home
== END 2022-03-06 00:45 | disposition home or self-care (01) ==
LOC: WPOUT 22:18 → WP 22:18
PROVIDERS: PCP Family Medicine; Visit Provider Advanced Practice Midwife
DX: O36.8130 Decreased fetal movements, third trimester, not applicable or unspecified (principal); Z3A.39 39 weeks gestation of pregnancy; O99.891 Other specified diseases and conditions complicating pregnancy; N89.8 Other specified noninflammatory disorders of vagina
CPT/HCPCS: 59025; 59050; 84112; 99221; G0378

== ENCOUNTER 2022-03-08 07:00 | Inpatient (IN) | payer OTHER, SELFPAY ==
[2022-03-08] VITALS (47 sets, daily range): BP systolic 105–144; BP diastolic 56–103; PULSE 55–122; RESP 16–18; TEMP 36.3–37.1; O2SAT 95–100; BMI 31.1
[2022-03-08] MEDS: Lactated Ringers 1,000 ML 50 ML IV (07:46)
[2022-03-08 07:57] LABS: Absolute Lymphocyte Count 1.61 X10^3/uL (0.83-4.51); Absolute Neutrophil Count 5.8 X10^3/uL (2.0-7.7); Basophil# 0.03 X10^3/uL; Basophil% 0.4 % (0-1); Eosinophil# 0.06 X10^3/uL; Eosinophils% 0.7 % (0-5); Hematocrit 32.3 % (37-47); Hemoglobin 11.2 g/dL (12.0-15.0); Lymphocyte # 1.61 X10^3/ul (0.83-4.51); Lymphocyte % 19.9 % (19-41); Mean Corp Hgb Conc 34.7 g/dL (32-36); Mean Corpuscular Hgb 30.6 pg (27.0-32.0); Mean Corpuscular Volume 88.3 fL (81-99); Mean Platelet Vol. 11.5 fl (6.2-12.0); Monocyte# 0.55 X10^3/uL; Monocyte% 6.8 % (0-10); NRBC Flagged by Analyzer 0 % (0-5); Neutrophil # 5.78 X10^3/uL (2.7-7.7); Neutrophil % 71.5 % (47-70); Platelet Count 166 K/mm3 (150-450); RBC Distribution Width CV 12.9 % (11.6-14.6); RBC Distribution Width SD 41.6 fl (35.1-43.9); Red Blood Count 3.66 M/mm3 (4.2-5.4); White Blood Count 8.1 K/mm3 (4.4-11.0)
[2022-03-08] MEDS: Oxytocin 15 Units/NS 250ml 15 UNITS/250 ML IV.SOLN 2 UNITS IV (08:15)
[2022-03-08] MEDS: LACTATED RINGERS 500 ML 999 ML IV (11:26)
[2022-03-08] MEDS: fentaNYL-bupivacaine (epidural) 100 ML BAG EPIDURAL (12:23)
[2022-03-08] MEDS: Penicillin G 3,000,000 Units 50 ML 100 UNITS IV (12:25)
--- NOTE | 2022-03-08 13:26 | HP.PCM.OB_ITS ---
HPI - General General Date of Admission: 03/08/22 Date of Service: 03/08/22 Chief Complaint: induction of labor HPI Narrative LEATHA CLAUDIO, is a 31-year-old 3 para 2 who presents at 39-2/7 weeks for induction of labor due to advanced cervical dilation. She denies any vaginal bleeding or leaking of fluid. She is had some occasional contractions. No other complaints today. has been uncomplicated to date. She does have a history of a positive hepatitis C screen but her hepatitis C viral detection has been negative twice. She does have a history of anxiety and hypothyroidism. She also has a history of polycystic kidney disease. She is also had antepartum anemia in the third trimester Maternal Data Information Final TOMAS: 03/13/22 Gestational age: 39-2/7 [facility] Medical History (Updated 03/08/22 @ 13:[address] Shanita Avilez MD) Anxiety Kidney disease Superficial varicosities Thyroid disorder Home Medications Prenatabs FA 1 tab PO DAILY 03/20/17 [History Last Taken 03/07/22 21:00 1 tab] levothyroxine 50 mcg tablet 50 mcg PO DAILY hypothyroidism 03/20/17 [History Last Taken 03/08/22 06:00 50 mcg] iron 50 mg iron tablet 45 tab PO DAILY 03/05/22 [History Last Taken 03/06/22 15:00 50 mg] sertraline 50 mg tablet (Zoloft) 50 mg PO DAILY anxiety 03/05/22 [History Last Taken 03/08/22 06:00 50 mg] Allergy/AdvReac Type Severity Reaction Status Date / Time codeine Allergy Other Verified 03/08/22 08:52 Social History Smoking Status: Never smoker History Elective abortions Hx Para 2 Spontaneous abortions Hx # Term Pregnancies Ectopic pregnancies Hx # Pregnancies Multiple births # of living children ROS Constitutional Constitutional: Denies fatigue, fever(s) or malaise Eyes Eyes: Denies change in vision ENT HEENT: Denies dizziness or headache(s) Cardiovascular Cardiovascular: Denies chest pain, dyspnea or lightheadedness Respiratory/Chest Respiratory/Chest: Denies cough or dyspnea Gastrointestinal Gastrointestinal: Denies change in bowel habits Genitourinary Genitourinary: Denies burning urination or genital lesions Integumentary Integumentary: Denies rash Neurologic Neurologic: Denies confusion, dizziness, headache(s), numbness or weakness Vital Signs Vital Signs Vital Signs: 03/08/22 07:24 03/08/22 07:25 03/08/22 07:25 Temperature Temperature Source Pulse Rate 100 Blood Pressure 111/71 BP Systolic 111 BP Diastolic 71 Pulse Ox 100 03/08/22 07:25 03/08/22 07:25 03/08/22 08:18 Temperature 98.5 F Temperature Source Temporal Pulse Rate Blood Pressure 117/59 L BP Systolic 117 BP Diastolic 59 Pulse Ox 03/08/22 08:18 03/08/22 08:18 03/08/22 08:19 Temperature Temperature Source Temporal Pulse Rate 76 87 Blood Pressure BP Systolic BP Diastolic Pulse Ox 03/08/22 08:19 03/08/22 08:18 03/08/22 09:24 Temperature 97.8 F Temperature Source Temporal Pulse Rate Blood Pressure BP Systolic BP Diastolic Pulse Ox 97 03/08/22 09:24 03/08/22 09:25 03/08/22 09:25 Temperature Temperature Source Pulse Rate 60 Blood Pressure 124/64 H BP Systolic 124 BP Diastolic 64 Pulse Ox 99 03/08/22 09:24 03/08/22 10:34 03/08/22 10:34 Temperature 98.2 F Temperature Source Temporal Pulse Rate Blood Pressure 111/69 BP Systolic 111 BP Diastolic 69 Pulse Ox 03/08/22 10:34 03/08/22 10:34 03/08/22 10:34 Temperature 98.6 F Temperature Source Pulse Rate 65 Blood Pressure BP Systolic BP Diastolic Pulse Ox 100 03/08/22 11:24 03/08/22 11:24 03/08/22 11:24 Temperature Temperature Source Temporal Pulse Rate 70 Blood Pressure 123/78 H BP Systolic 123 BP Diastolic 78 Pulse Ox 03/08/22 11:24 03/08/22 11:25 03/08/22 11:25 Temperature 97.3 F L Temperature Source Pulse Rate 61 Blood Pressure BP Systolic BP Diastolic Pulse Ox 100 03/08/22 11:49 03/08/22 11:49 03/08/22 12:02 Temperature Temperature Source Pulse Rate 74 70 Blood Pressure 144/83 H BP Systolic 144 BP Diastolic 83 Pulse Ox 03/08/22 12:02 03/08/22 12:06 03/08/22 12:06 Temperature Temperature Source Pulse Rate 122 H Blood Pressure 131/90 H BP Systolic 131 BP Diastolic 90 Pulse Ox 100 03/08/22 12:07 03/08/22 12:07 03/08/22 12:12 Temperature Temperature Source Pulse Rate 68 75 Blood Pressure BP Systolic BP Diastolic Pulse Ox 100 03/08/22 12:12 03/08/22 12:12 03/08/22 12:12 Temperature Temperature Source Pulse Rate 75 Blood Pressure 143/103 H BP Systolic 143 BP Diastolic 103 Pulse Ox 100 03/08/22 12:13 03/08/22 12:13 03/08/22 12:17 Temperature Temperature Source Pulse Rate 73 Blood Pressure 142/90 H 121/82 H BP Systolic 142 121 BP Diastolic 90 82 Pulse Ox 03/08/22 12:17 03/08/22 12:17 03/08/22 12:21 Temperature Temperature Source Pulse Rate 79 Blood Pressure 122/80 H BP Systolic 122 BP Diastolic 80 Pulse Ox 100 03/08/22 12:21 03/08/22 12:22 03/08/22 12:22 Temperature Temperature Source Pulse Rate 75 69 Blood Pressure BP Systolic BP Diastolic Pulse Ox 100 03/08/22 12:26 03/08/22 12:26 03/08/22 12:27 Temperature Temperature Source Pulse Rate 58 L 63 Blood Pressure 128/75 H BP Systolic 128 BP Diastolic 75 Pulse Ox 03/08/22 12:27 03/08/22 12:30 03/08/22 12:30 Temperature Temperature Source Pulse Rate 82 Blood Pressure 129/82 H BP Systolic 129 BP Diastolic 82 Pulse Ox 99 03/08/22 12:32 03/08/22 12:32 03/08/22 12:37 Temperature Temperature Source Pulse Rate 69 Blood Pressure 121/78 H BP Systolic 121 BP Diastolic 78 Pulse Ox 100 03/08/22 12:37 03/08/22 12:38 03/08/22 12:38 Temperature Temperature Source Pulse Rate 68 65 Blood Pressure BP Systolic BP Diastolic Pulse Ox 100 03/08/22 12:41 03/08/22 12:41 03/08/22 12:43 Temperature Temperature Source Pulse Rate 60 84 Blood Pressure 119/69 BP Systolic 119 BP Diastolic 69 Pulse Ox 03/08/22 12:43 03/08/22 12:45 03/08/22 12:45 Temperature Temperature Source Pulse Rate 69 Blood Pressure 116/68 BP Systolic 116 BP Diastolic 68 Pulse Ox 99 03/08/22 12:48 03/08/22 12:48 03/08/22 12:51 Temperature Temperature Source Pulse Rate 62 Blood Pressure 123/85 H BP Systolic 123 BP Diastolic 85 Pulse Ox 98 03/08/22 12:51 03/08/22 12:53 03/08/22 12:53 Temperature Temperature Source Pulse Rate 62 60 Blood Pressure BP Systolic BP Diastolic Pulse Ox 99 Weight Weight: 79.8 kg Body Mass Index (BMI) 31.1 Physical Exam Const alert and no apparent distress General Appearance: cooperative HEENT normocephalic Resp normal respiratory effort Cardio regular rate GI soft to palpation GI Narrative: gravid, nontender, appropriate for gestational age Extremity no calf tenderness General Extremity: edema Skin no wounds Rashes: No rashes noted Psych activity/motor behavior normal Labs Labs Labs: Blood Type A POSITIVE Antibody Screen NEGATIVE Hct 32.3 % (37-47) L Hgb 11.2 g/dL (12.0-15.0) L Rhogam given: No Assessment & Plan (1) 39 weeks gestation of : PLAN: Risk benefits and alternatives to induction labor him discussed with patient, questions were answered to her satisfaction she desires to proceed. Estimated weight is less than 4500 g clinically and pelvis is clinically adequate to expect vaginal delivery. Accepts Pitocin and artificial rupture membrane induction of labor. May have epidural or other routine pain management measures as desired and as needed. Group B strep prophylaxis is initiated. (2) Elective induction of labor planned:
--- NOTE | 2022-03-08 15:14 | EX.PCM.OBRPT ---
Assessment & Plan (1) (spontaneous vaginal delivery): (2) Single live : Maternal Data Information Final TOMAS: 03/13/22 Gestational age: 39 2/7 Vaginal Delivery Maternal Presentation Maternal Presentation: Elective Induction Type of Induction: Pitocin and Amniotomy Operative Information Date of Procedure: 03/08/22 Pre-Operative Diagnosis: Post-Operative Diagnosis: Surgery / Procedure Performed: Spontaneous Vaginal Delivery Type of Anesthesia: Epidural Drain: Cohn to straight drain Estimated Blood Loss: 300 Time of Delivery: 15:00 Findings Description of Procedure: A vigorous female was delivered VICKI over an intact perineum. The remainder the was delivered with maternal pushing and gentle traction only in less than 15 seconds. The Pitocin infusion was initiated for active management of the third stage. The cord was clamped and cut after 1 minute. The infant was attended to by the waiting nursing staff. The placenta was delivered spontaneously and intact. The cervix and vagina were intact. Sponge and needle counts were correct. A vaginal sweep was completed by me. Presentation: VICKI Amniotic Membrane Rupture Type: Artificial Amniotic Fluid Description: Lightly stained meconium Placental Delivery Description: Spontaneous Placenta Disposition: [facility] Cord Vessel Description: 3 Vessels Cord Entanglement: None Infant A Gender: Female (Briella) (1 minute): 7 (5 minute): 9 Post Vaginal Delivery Medications Given After Delivery: IV Pitocin Episiotomy Description: None Laceration: None Complication Complications: None
[2022-03-08] MEDS: Ibuprofen 600 MG Tablet PO (23:32)
[2022-03-09 03:32] VITALS: BP 118/52; PULSE 55; RESP 18; TEMP 36.8; O2SAT 97
[2022-03-09] MEDS: Levothyroxine 50 MCG Tablet PO (05:46)
[2022-03-09 08:00] VITALS: BP 116/65; PULSE 78; RESP 16; TEMP 36.7; O2SAT 96
[2022-03-09] MEDS: Sertraline 50 MG Tablet PO (11:35)
[2022-03-09 13:15] VITALS: BP 128/77; PULSE 75; RESP 16; TEMP 36.9; O2SAT 98
--- NOTE | 2022-03-09 14:45 | CASEMGMT ---
Addendum entered by Gracie Mills 03/09/22 15:06: PHQ2 score was 0. Original Note: SW Note Referral Source: [facility] SW Referral Reason: History of anxiety SW met with ALEXI Gramajo who reports no concern regarding patient and nb. SUSIE gave verbal consent for this business writer to speak to her in the presence of the fob. SUSIE was the nb. SUSIE appeared to be appropriately bonding with the nb and was bright and reactive. Mom: Kylah PNC: [facility] Control: FOB will be having a vasectomy Baby: Miriam : 03/08/22 Apgars: 7 and 9 Weight: 8 lbs 12 ounces Guidance Director: Playlashaun SUSIE is breast feeding the nb and reports it is going well. SUSIE's Other Children and Names: Simon age 7 1/2, Charly age 4 Housing: SUSIE reports she lives in a house in [place] with her and their children (now 3) Transportation: SUSIE reports that she has access to transportation and can drive a car Supplies: SUSIE reports she has a carseat, diapers, clothes, bassinet and crib for the nb Education Level: Patient graduated high school and has an associate degree in dental hygiene. No learning issues or delays. Supports: SUSIE said that her support is the fob, her mother and her mother in law (who both reside in [place]). Employment: SUSIE reports that she is employed at [employer]. She is taking 12 weeks off work. Her plan is for her middle child's didactic program in dietetics director, Luisa, to watch the nb and SUSIE feels comfortable with Luisa as she has watched her other children. Agency Involvement: SUSIE reports no JFS, WIC, HMG, Counseling, CSB or legal issues. FOB: Attila Forrester Time Together: 13 years and together 16 years Involved at : FOB will be involved with the nb Employed: FOMoira is employed as an weatherization specialist at [employer]. He plans to take 2 weeks off work. 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 SUSIE said that her anxiety increased when she returned to work after covid. Patient said that previously patient had been on Zoloft but had weaned herself off. Patient said that when she was started to experience anxiety with the covid and work situation she contacted her PCP who prescribed her zoloft. MOB said that she plans to continue to take Zoloft and it works well for her. MOB denied any current or past SI/HI. MOB said that she had no history of post depression. MOB said that her PCP, Dr Matthews, has an appointment with her on the last week of this month or first week of [facility] to see how she is doing and if there needs to be a dosage change. Patient said that Zoloft works well for her. Patient was educated on post depression. MOB and FOB were educated on post depression, shaken baby syndrome and safe sleeping. MOB denied alcohol, drugs or tobacco history. SW provided MOB with resources on PPD and PPD/PPA support including on line and phone resources. Plan: Home at discharge Gracie CHEN
--- NOTE | 2022-03-09 15:17 | PCM.DC.SUM ---
Providers Date of Admission: 03/08/22 Primary Care Physician: Dr. Rudy Matthews MD Reason For Visit: VAG DELIVERY Diagnosis Discharge Diagnosis (1) (spontaneous vaginal delivery): Status: Acute Code(s): O80 - Encounter for full-term uncomplicated delivery (2) Single live : Status: Acute Code(s): Z37.0 - Single live Medications at Discharge Home Medications Prenatabs FA 1 tab PO DAILY 03/20/17 levothyroxine 50 mcg tablet 50 mcg PO DAILY hypothyroidism 03/20/17 sertraline 50 mg tablet (Zoloft) 50 mg PO DAILY anxiety 03/05/22 acetaminophen 500 mg tablet 1,000 mg PO Q6H PRN PRN Pain 1-10 Or Fever #0 tabs 03/09/22 ibuprofen 600 mg tablet 600 mg PO Q6H PRN PRN Pain Score 1-3 #0 tabs 03/09/22 Weight / BMI Weight Weight: 175 lb 14.862 oz Body Mass Index (BMI) 31.1 ABG / Lab / Microbiology Data Result Diagrams: 03/08/22 07:40 Meaningful Use Info Meaningful Use Diagnoses (Choose all that apply): None applicable Discharge Plan Admission Admit Date/Time: 03/08/22 07:00 Primary Reason for Your Visit: Vaginal Delivery Attending Provider: Shanita Avilez Primary Care Provider: Rudy Matthews Instructions Patient Instructions: After a Vaginal Discharge Orders/Prescriptions Prescriptions: New acetaminophen 500 mg Tablet 1,000 mg PO Q6H PRN PRN (Reason: Pain 1-10 Or Fever) Qty: 0 0RF ibuprofen 600 mg Tablet 600 mg PO Q6H PRN PRN (Reason: Pain Score 1-3) Qty: 0 0RF Continued levothyroxine 50 MCG tablet 50 mcg PO DAILY Prenatabs FA 1 tab PO DAILY sertraline [Zoloft] 50 mg Tablet 50 mg PO DAILY Discontinued iron 50 mg iron Tablet 45 tab PO DAILY Rx Instructions: takes every other day 45 mg PO tablet OTC Referrals / Follow Up: Rudy Matthews MD [Primary Care Provider] - Shanita Avilez MD [Med Staff - Active Staff] - (Follow up in 2 weeks for virtual visit and 6 weeks for PP visit) Disposition Disposition (needs filled in before D/C Order can be placed): Home, Self Care
--- NOTE | 2022-03-09 15:20 | PCM.PN.OB ---
Subjective Subjective Doing well per patient and nursing staff. Ambulating and taking PO without difficulty. Voiding and passing flatus. Pain controlled. , services for assistance. Denies headache, visual changes, chest pain, shortness of breath, leg pain or increased bleeding. Lochia normal. Objective Data Objective Data Vital Signs: Vital Signs Temp Pulse Resp BP Pulse Ox O2 Del Method 98.0 F 78 16 116/65 96 Room Air 03/09/22 08:00 03/09/22 08:00 03/09/22 08:00 03/09/22 08:00 03/09/22 08:00 03/09/22 08:00 Oxygen Delivery Method Room Air Weight: 175 lb 14.862 oz Body Mass Index (BMI) 31.1 Intake & Output: Intake and Output for Last 24 Hours 03/07/22 03/08/22 03/09/22 23:59 23:59 23:59 Intake Total 1902.50 / 1902.50 Output Total 1250 / 1250 Balance 652.50 / 652.50 Lab / Micro Data Result Diagrams: 03/08/22 07:40 Physical Exam Const alert and oriented x3 General Appearance: cooperative Orientation / Consciousness: awake, oriented to person, oriented to place and oriented to time Exam Limitations: no limitations HEENT normocephalic Head and Scalp: normal to inspection, normocephalic and atraumatic Face and Sinus: normal facial exam Eyes General Eye: normal appearance of both eyes Neck full ROM Chest Chest: symmetrical chest wall rise Resp normal respiratory effort and normal air movement Auscultation: clear to auscultation bilaterally Cardio regular rate, regular rhythm, S1 normal heart sound, S2 normal heart sound, no murmurs, no rub, no gallops and no clicks GI normal to inspection, nondistended, normoactive bowel sounds and non-tender appearance of the vagina normal Bladder / Kidney Exam: no CVA tenderness Back/Spine normal ROM Extremity normal to inspection and full ROM Skin no rashes or lesions noted Neuro oriented x3, CN's II-XII intact bilaterally and moves all extremities Sensorium / Orientation: awake, alert and oriented to person Motor Exam: clonus absent Deep Tendon Reflexes: Rt Patellar (L4): 2+ and Lt Patellar (L4): 2+ Assessment & Plan (1) Single live : (2) (spontaneous vaginal delivery): PLAN: Plan 1) Routine PP care 2) VS stable 3) Pain management 4) Planning D/C home today 5) Follow up in 2 weeks and 6 weeks
== END 2022-03-09 16:05 | disposition home or self-care (01) | DRG 807 ==
PROVIDERS: Admitting Provider Obstetrics & Gynecology; PCP Family Medicine; Referring Provider Obstetrics & Gynecology; Visit Provider Obstetrics & Gynecology
DX: O34.33 Maternal care for cervical incompetence, third trimester (principal); Z37.0 Single live birth; O99.344 Other mental disorders complicating childbirth; E03.9 Hypothyroidism, unspecified; F41.9 Anxiety disorder, unspecified; O99.284 Endocrine, nutritional and metabolic diseases complicating childbirth; O77.0 Labor and delivery complicated by meconium in amniotic fluid; Z79.890 Hormone replacement therapy; Z79.899 Other long term (current) drug therapy; Z3A.39 39 weeks gestation of pregnancy
CPT/HCPCS: 59025; 59050; 85025; 86850; 86900; 86901; 99221; J7120; G0378